=== PATIENT | female | born 2000 | race American Indian/Alaskan Native ===

== ENCOUNTER 2019-03-14 14:48 | Emergency (ER) | payer OTHER ==
--- NOTE | 2019-03-14 16:09 | ER ---
Nurse's Notes [facility] Name: Mili Arana Age: 19 yrs Sex: Female : 2000 Arrival Date: 03/14/2019 Time: 14:54 Bed 10 Private MD: Diagnosis: Acute pharyngitis Presentation: 03/14 14:55 Presenting complaint: Patient states: past few days, the L side of my throat is hj swollen; denies fever;. Transition of care: patient was not received from another setting of care. Onset of symptoms was March 14, 2019. Risk Assessment: Do you want to hurt yourself or someone else? Patient reports no desire to harm self or others. Initial Sepsis Screen: Does the patient meet any 2 criteria? No. Patient's initial sepsis screen is negative. Does the patient have a suspected source of infection? No. Patient's initial sepsis screen is negative. Care prior to arrival: None. 14:55 Method Of Arrival: Ambulatory 14:55 Acuity: MILTON 4 hj Triage Assessment: 15:04 General: Appears in no apparent distress. uncomfortable, Behavior is calm, cooperative, hj appropriate for age. 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 - Social history:: Smoking status: Patient/guardian denies using tobacco, Patient/guardian denies using alcohol. - Ebola Screening: : Patient negative for fever greater than or equal to 101.5 degrees Fahrenheit, and additional compatible Ebola Virus Disease symptoms Patient denies exposure to infectious person Patient denies travel to an Ebola-affected area in the 21 days before illness onset. Screenin:03 Abuse screen: Denies threats or abuse. Denies injuries from another. Nutritional hj screening: No deficits noted. Tuberculosis screening: No symptoms or risk factors identified. Fall Risk None identified. Assessment: 15:03 Pain: Complains of pain in throat. Respiratory: Airway is patent Respiratory effort is hj even, unlabored, Respiratory pattern is regular, symmetrical, Breath sounds are clear. EENT: Throat. Vital Signs: 14:56 BP 115 / 66; Pulse 74; Resp 18; Temp 98.4(O); Pulse Ox 100% on R/A; Weight 70.31 kg; hj Height 5 ft. 5 in. (165.10 cm); Pain 5/10; 16:20 BP 118 / 68; Pulse 75; Resp 18; Pulse Ox 100% on R/A; hj 14:56 Body Mass Index 25.79 (70.31 kg, 165.10 cm) hj ED Course: 14:54 Patient arrived in ED. mr 14:56 Triage completed. hj 14:56 Arm band placed on right wrist. hj 15:01 Sanjay Candelaria PA is PHCP. [facility] 15:01 Justin Hanna MD is Attending Physician. [facility] 15:03 Raimundo Francis, RN is Primary Nurse. hj 15:04 Patient has correct armband on for positive identification. Placed in gown. Bed in low hj position. Call light in reach. 16:21 No provider procedures requiring assistance completed. Patient did not have IV access hj during this emergency room visit. Administered Medications: 16:07 Drug: Dexamethasone 10 mg Route: IM; Site: left deltoid; hj 16:18 Follow up: Response: No adverse reaction Outcome: 16:08 Discharge ordered by . [facility] 16:21 Discharged to home ambulatory. 16:21 Condition: stable 16:21 Discharge instructions given to patient, Instructed on discharge instructions, follow up and referral plans. Demonstrated understanding of instructions, follow-up care. 16:21 Patient left the ED. Signatures: Sanjay Candelaria PA PA jmm Roxana Kang mr Raimundo Francis, RN RN hj Corrections: (The following items were deleted from the chart) 14:58 14:56 Pulse 74bpm; Resp 18bpm; Pulse Ox 100% RA; Temp 98.4F Oral; 70.31 kg; Height 5 hj ft. 5 in.; BMI: 25.7; Pain 5/10; hj
--- NOTE | 2019-03-14 16:09 | EDPHYS ---
Physician Documentation [facility] Name: Mili Arana Age: 19 yrs Sex: Female : 2000 Arrival Date: 03/14/2019 Time: 14:54 Bed 10 Private MD: ED Physician Justin Hanna HPI: 03/14 15:07 This 19 yrs old Other Female presents to ER via Ambulatory with complaints of Sore jmm Throat. 15:07 The patient presents with sore throat. The patient describes throat pain as raw. Onset: jmm The symptoms/episode began/occurred gradually, 2 day(s) ago. Modifying factors: The symptoms are alleviated by nothing, the symptoms are aggravated by nothing, Patient's oral intake status: good. Associated signs and symptoms: Pertinent negatives cough, fever. The patient has not experienced similar symptoms in the past. This is a 19 year old female with a history of anemia that presents to the ED with complaints of sore throat beginning yesterday. . 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 - Social history:: Smoking status: Patient/guardian denies using tobacco, Patient/guardian denies using alcohol. - Ebola Screening: : Patient negative for fever greater than or equal to 101.5 degrees Fahrenheit, and additional compatible Ebola Virus Disease symptoms Patient denies exposure to infectious person Patient denies travel to an Ebola-affected area in the 21 days before illness onset. ROS: 15:07 Constitutional: Negative for fever, chills, and weight loss. jmm 15:07 Neck: Negative for injury, pain, and swelling, Cardiovascular: Negative for chest pain, palpitations, and edema, Respiratory: Negative for shortness of breath, cough, wheezing, and pleuritic chest pain. 15:07 ENT: Positive for sore throat. 15:07 All other systems are negative. Exam: 15:07 Head/Face: atraumatic. Eyes: EOMI, no conjunctival erythema appreciated jmm 15:07 Neck: Trachea midline, Supple Chest/axilla: Normal chest wall appearance and motion. 15:07 Abdomen/GI: Non distended, soft Back: Normal ROM Skin: General appearance color normal MS/ Extremity: Moves all extremities, no obvious deformities appreciated, no edema noted to the lower extremities Neuro: Awake and alert, normal gait Psych: Behavior is normal, Mood is normal, Patient is cooperative and pleasant 15:07 Constitutional: The patient appears in no acute distress, alert, awake. 15:07 ENT: Posterior pharynx: erythema, that is mild. 15:07 Cardiovascular: Rate: normal, Rhythm: regular. 15:07 Respiratory: the patient does not display signs of respiratory distress, Respirations: normal, Breath sounds: are clear throughout. Vital Signs: 14:56 BP 115 / 66; Pulse 74; Resp 18; Temp 98.4(O); Pulse Ox 100% on R/A; Weight 70.31 kg; hj Height 5 ft. 5 in. (165.10 cm); Pain 5/10; 16:20 BP 118 / 68; Pulse 75; Resp 18; Pulse Ox 100% on R/A; hj 14:56 Body Mass Index 25.79 (70.31 kg, 165.10 cm) MDM: 15:07 Patient medically screened. [facility] 16:07 Data reviewed: vital signs, nurses notes. Counseling: I had a detailed discussion with [facility] the patient and/or guardian regarding: the historical points, exam findings, and any diagnostic results supporting the discharge/admit diagnosis, lab results, the need for outpatient follow up, to return to the emergency department if symptoms worsen or persist or if there are any questions or concerns that arise at home. ED course: Patient is alert and non toxic in appearance in the ED. Patient advised to follow up with pcp and otherwise given strict return precautions. Patient understood and agrees with the plan of care. . 03/14 15:07 Order name: Strep; Complete Time: 16:07 [facility] 03/14 16:04 Order name: Throat Culture EDMS Administered Medications: 16:07 Drug: Dexamethasone 10 mg Route: IM; Site: left deltoid; 16:18 Follow up: Response: No adverse reaction Disposition: 03/15 07:50 Co-signature as Attending Physician, Justin Hanna MD I agree with the assessment and kdr plan of care. Disposition: 03/14/19 16:08 Discharged to Home. Impression: Acute pharyngitis. - Condition is Stable. - Discharge Instructions: Pharyngitis. - Work release form, Medication Reconciliation Form, Thank You Letter, Antibiotic Education, Prescription Opioid Use form. - Follow up: Private Physician; When: 2 - 3 days; Reason: Recheck today's complaints, Continuance of care, Re-evaluation by your physician. Signatures: Dispatcher [employer] EDMS Justin Hanna MD MD kdr Mickail, Joel, PA PA jmm Joaquin, Henry RN RN hj Corrections: (The following items were deleted from the chart) 03/14 16:21 16:08 03/14/2019 16:08 Discharged to Home. Impression: Acute pharyngitis. Condition is hj Stable. Forms are Medication Reconciliation Form, Thank You Letter, Antibiotic Education, Prescription Opioid Use. Follow up: Private Physician; When: 2 - 3 days; Reason: Recheck today's complaints, Continuance of care, Re-evaluation by your physician. [email or web address]
[2019-03-14] MEDS ORDERED: DEXAMETHASONE 4 MG/ML VIAL ONE (16:29)
== END 2019-03-14 16:21 | disposition home or self-care (01) ==
LOC: ER 14:48
DX: J02.9 Acute pharyngitis, unspecified (principal); D64.9 Anemia, unspecified
CPT/HCPCS: 87070; 87081; 96372; 99283